=== PATIENT | male | born 1990 | race Caucasian/White ===

== ENCOUNTER 2017-02-08 00:26 | Emergency (ER) | payer BC ==
[~2017-02-08 00:26] MED LIST: METFORMIN500 M1 PO; PROVENTIL0.09 MG/A1
[2017-02-08 01:52] VITALS: BP 138/72
== END 2017-02-08 01:52 | disposition home or self-care (01) ==
LOC: ED 00:26
DX: S59.091A Other physeal fracture of lower end of ulna, right arm, initial encounter for closed fracture (principal); J45.909 Unspecified asthma, uncomplicated; W22.8XXA Striking against or struck by other objects, initial encounter; Y93.89 Activity, other specified; Y99.8 Other external cause status; Y92.89 Other specified places as the place of occurrence of the external cause